=== PATIENT | female | born 1985 | race Caucasian/White ===

== ENCOUNTER 2017-07-11 07:20 | Inpatient (IN) | payer MEDICAID ==
[2017-07-11] MEDS ORDERED: Nalbuphine 20 MG/1 ML Amp IVPUSH PRN (07:30)
[2017-07-11] MEDS ORDERED: Sodium Chloride 0.9% 10 ML Syringe FLUSH PRN (07:30)
[2017-07-11] MEDS ORDERED: Ondansetron 4 MG/2 ML SDV IVPUSH PRN (07:30)
[2017-07-11] MEDS ORDERED: Oxytocin/Lactated Ringers 10 UNIT/1,000 ML BAG IV SCH ×2 (07:30)
--- NOTE | 2017-07-11 07:34 | PCM.LDHP ---
L&D History of Present Illness - General Date of Service: 07/11/17 Admit Problem/Dx: Patient Status Order with Admit Dx/Problem 07/11/17 07:31 Patient Status [ADT] Routine Admission Diagnosis/Problem Admission Diagnosis/Problem Normal Source of Information: Patient History Limitations: Reports: No Limitations - History of Present Illness Introduction:: Patient is a 32 y/o at 39 3/7 wks presents for IOL. Doing well. No new concerns or complaints. Having some slight cramping at times. - Related Data Allergies/Adverse Reactions: Allergies Allergy/AdvReac Type Severity Reaction Status Date / Time No Known Allergies Allergy Verified 06/22/16 10:25 Home Medications: Home Meds Ondansetron [Zofran ODT] 4 mg PO Q6H #10 tab.dis MDD 8mg 06/22/16 [Rx] Past Medical History [employer] History: Reports: : 2 Para: 1 LMP (Approximate): Psychiatric History: Reports: Depression - Past Surgical History HEENT Surgical History: Reports: Oral Surgery (tooth extraction) Social & Family History - Family History Family Medical History: Noncontributory - Tobacco Use Smoking Status *Q: Former Smoker Years of Tobacco use: 10 Packs/Tins Daily: 0.5 - Caffeine Use Caffeine Use: Reports: Coffee, Soda - Recreational Drug Use Recreational Drug Use: No H&P Review of Systems - Review of Systems: Review Of Systems: See Below General: Reports: No Symptoms Pulmonary: Reports: No Symptoms Cardiovascular: Reports: No Symptoms Gastrointestinal: Reports: No Symptoms Genitourinary: Reports: No Symptoms Musculoskeletal: Reports: No Symptoms Psychiatric: Reports: No Symptoms L&D Exam - Exam Exam: See Below - OB Specific Contraction Intensity: Irritability Movement: Active Heart Tones: Present Heart Tones per Min: 135 Heart Rate (FHR) Variability: Moderate (6-25 bmp) Presentation: Vertex - Ramirez Score Ramirez Score Cervix Position: Posterior Ramirez Score Consistency: Soft Ramirez Score Effacement: >80% Ramirez Score Dilation: 3-4 cm Ramirez Score 's Station: -2 Ramirez Score Total: 8 - Exam General: Alert, Oriented, Cooperative Lungs: Clear to Auscultation, Normal Respiratory Effort Cardiovascular: Regular Rate, Regular Rhythm GI/Abdominal Exam: Soft, Non-Tender Genitourinary: Normal external exam Extremities: Normal Inspection Skin: Warm, Dry, Intact - Patient Data Result Diagrams: 07/11/17 07:57 - Problem List (1) 39 weeks gestation of SNOMED Code(s): 99803837 ICD Code: Z3A.39 - 39 WEEKS GESTATION OF Status: Acute Current Visit: Yes Problem List Initiated/Reviewed/Updated: Yes Orders Last 24hrs: Active Orders 24 hr Category Date Time Status Patient Status [ADT] Routine ADT 07/11/17 07:31 Ordered Communication Order [RC] ASDIRECTED Care 07/11/17 07:31 Ordered Communication Order [RC] ASDIRECTED Care 07/11/17 07:31 Ordered Communication Order [RC] ASDIRECTED Care 07/11/17 07:31 Ordered Monitoring [RC] INTERMITTENT Care 07/11/17 07:31 Ordered Notify Provider [RC] ASDIRECTED Care 07/11/17 07:31 Ordered Notify Provider [RC] PRN Care 07/11/17 07:31 Ordered Peripheral IV Care [RC] . DIRECTED Care 07/11/17 07:31 Ordered Up ad Estefanía [RC] ASDIRECTED Care 07/11/17 07:31 Ordered Urinary Catheter Assessment [RC] ASDIRECTED Care 07/11/17 07:30 Ordered Vaginal Exam [RC] ASDIRECTED Care 07/11/17 07:31 Ordered Vital Signs [RC] ASDIRECTED Care 07/11/17 07:31 Ordered Vital Signs [RC] PER UNIT ROUTINE Care 07/11/17 07:31 Ordered Regular Diet [DIET] Diet 07/11/17 Breakfast Ordered CBC W/O DIFF,HEMOGRAM [HEME] Routine Lab 07/11/17 07:30 Ordered TYPE AND SCREEN [BBK] Routine Lab 07/11/17 07:30 Ordered Lactated Ringers [Ringers, Lactated] 1,000 ml Med 07/11/17 07:30 Ordered IV ASDIRECTED Nalbuphine [Nubain] Med 07/11/17 07:30 Ordered 10 mg IVPUSH Q2H PRN Ondansetron [Zofran] Med 07/11/17 07:30 Ordered 4 mg IVPUSH Q4H PRN Oxytocin/Lactated Ringers [Pitocin in LR 10 Units/1,000 Med 07/11/17 07:30 Ordered ML] 10 unit in 1,000 ml IV .CONTINUOUS Oxytocin/Lactated Ringers [Pitocin in LR 10 Units/1,000 Med 07/11/17 07:30 Ordered ML] 10 unit in 1,000 ml IV TITRATE Sodium Chloride 0.9% [Saline Flush] Med 07/11/17 07:30 Ordered 10 ml FLUSH ASDIRECTED PRN Electronic Heart Tones Internal [WOMSER] Per Unit Oth 07/11/17 07:31 Ordered Routine Peripheral IV Insertion Adult [OM.PC] Routine Oth 07/11/17 07:31 Ordered Resuscitation Status Routine Resus Stat 07/11/17 07:30 Ordered Assessment/Plan Comment:: 32 y/o presents at 39 3/7 wks for IOL * CBC and T&S * Pitocin for IOL with AROM when able * GBS negative, no need for antibiotics * Pain management per patient preference * Anticipate
[2017-07-11] MEDS: Lactated Ringers 1,000 ML IV SCH ×2 (08:03→14:23)
--- NOTE | 2017-07-11 11:53 | PCM.PNLD ---
Labor Progress Note - VS & Meds Active Medications: Current Medications Lactated Ringer's (Ringers, Lactated) 1,000 mls @ 40 mls/hr IV ASDIRECTED STEPHEN Last Admin: 07/11/17 08:03 Dose: 40 mls/hr Oxytocin/Lactated Ringer's (Pitocin In Lr 10 Units/1,000 Ml) 10 unit in 1,000 mls @ 12 mls/hr IV TITRATE STEPHEN; 2 MUNITS/MIN PRN Reason: Protocol Last Titration: 07/11/17 09:28 Dose: 6 munits/min, 36 mls/hr Oxytocin/Lactated Ringer's (Pitocin In Lr 10 Units/1,000 Ml) 10 unit in 1,000 mls @ 500 mls/hr IV .CONTINUOUS STEPHEN Nalbuphine HCl (Nubain) 10 mg IVPUSH Q2H PRN PRN Reason: Pain (moderate 4-6) Ondansetron HCl (Zofran) 4 mg IVPUSH Q4H PRN PRN Reason: Nausea/Vomiting Sodium Chloride (Saline Flush) 10 ml FLUSH ASDIRECTED PRN PRN Reason: Keep Vein Open - Uterine Contractions Uterine Monitoring Mode: External [place] Contraction Intensity: Mild to Moderate Uterine Resting Tone: Soft - Monitoring Monitor Mode: External Ultrasound Heart Rate (FHR) Baseline: 135 Heart Rate (FHR) Variability: Moderate (6-25 bmp) Accelerations: Present, 15x15 Decelerations: None Strip Review: Category I - Vaginal Exam Dilation (cm): 3-4 Effacement (Percent): 80 Station: -2 Cervical Position: Posterior - Labor Progress (Free Text) Labor Progress: Doing well. On 6 of pitocin. AROM performed with release of clear fluid. Continue present management
[2017-07-11] MEDS: Misoprostol 200 MCG Tab PO STA ×2 (14:20→16:01)
[2017-07-11] MEDS ORDERED: Oxytocin 10 Units/1 ML SDV ONE (15:02)
[2017-07-11] MEDS ORDERED: Lidocaine 1% 50 ML MDV ONE (15:14)
[2017-07-11] MEDS ORDERED: Misoprostol 200 MCG Tab ONE (15:16)
[2017-07-11] MEDS ORDERED: Oxytocin 10 Units/1 ML SDV IM ONE (15:21)
--- NOTE | 2017-07-11 15:34 | PCM.DEL ---
L & D Note - General Info Date of Service: 07/11/17 - Delivery Note Labor: Induced by ARM, Induced by Oxytocin Delivery Outcome: Livebirth Infant Delivery Method: Spontaneous Vaginal Delivery-Single Infant Delivery Mode: Spontaneous Presentation: Left Occiput Anterior (LAUREL) Nuchal Cord: None Anesthesia Type: None Amniotic Fluid Description: Clear Episiotomy Type: None Laceration: 2nd Degree, Perineal Suture type: Vicryl Suture size: 2-0 Placenta: Intact, Expressed Cord: 3 Vessels Estimated Blood Loss: 600 : Suctioned, Bulb Syringe, Stimulated, Warmed, [place] Used, Warmer Used Score 1 min: 8 Score 5 min: 9 Delivery Comments (Free Text/Narrative):: Patient found to be complete and began pushing. With maternal pushing effort head delivered from an LAUREL presentation. No nuchal present. With gentle downward traction the shoulders and body delivered. placed on maternal abdomen. Cord clamped and cut. Cord blood obtained. Placenta given time to separate, but at about 15 minutes had not released and exam showed to be sitting in the cervix. It was gently extracted. After this bleeding noted. IV access was lost and so she did get IM pitocin, buccal cytotec, and fundal massage. She did well with this. - Patient Data Lab Results Last 24 Hours: Laboratory Results - last 24 hr 07/11/17 07/11/17 Range/Units 07:57 07:57 WBC 8.40 (3.98-10.04) K/mm3 RBC 4.50 (3.98-5.22) M/mm3 Hgb 12.0 (11.2-15.7) gm/L Hct 35.9 (34.1-44.9) % MCV 79.8 (79.4-94.8) fl MCH 26.7 (25.6-32.2) pg MCHC 33.4 (32.2-35.5) g/dl RDW Std Deviation 43.9 (36.4-46.3) fL Plt Count 188 (182-369) K/mm3 MPV 10.4 (9.4-12.3) fl Blood Type O POSITIVE Gel Antibody Screen Negative Med Orders - Current: Current Medications Lactated Ringer's (Ringers, Lactated) 1,000 mls @ 40 mls/hr IV ASDIRECTED STEPHEN Last Admin: 07/11/17 14:23 Dose: 40 mls/hr Oxytocin/Lactated Ringer's (Pitocin In Lr 10 Units/1,000 Ml) 10 unit in 1,000 mls @ 12 mls/hr IV TITRATE STEPHEN; 2 MUNITS/MIN PRN Reason: Protocol Last Titration: 07/11/17 09:28 Dose: 6 munits/min, 36 mls/hr Oxytocin/Lactated Ringer's (Pitocin In Lr 10 Units/1,000 Ml) 10 unit in 1,000 mls @ 500 mls/hr IV .CONTINUOUS STEPHEN Misoprostol (Cytotec) 600 mcg PO NOW STA Stop: 07/11/17 15:32 Nalbuphine HCl (Nubain) 10 mg IVPUSH Q2H PRN PRN Reason: Pain (moderate 4-6) Ondansetron HCl (Zofran) 4 mg IVPUSH Q4H PRN PRN Reason: Nausea/Vomiting Oxytocin (Pitocin) 10 unit IM ONETIME ONE Stop: 07/11/17 15:22 Sodium Chloride (Saline Flush) 10 ml FLUSH ASDIRECTED PRN PRN Reason: Keep Vein Open Discontinued Medications Lidocaine HCl (Xylocaine 1%) Confirm Administered Dose 50 ml .ROUTE .STK-MED ONE Stop: 07/11/17 15:15 Misoprostol (Cytotec) Confirm Administered Dose 600 mcg .ROUTE .STK-MED ONE Stop: 07/11/17 15:17 Oxytocin (Pitocin) Confirm Administered Dose 10 unit .ROUTE .STK-MED ONE Stop: 07/11/17 15:03 - Problem List & Annotations (1) 39 weeks gestation of SNOMED Code(s): 40655213 Code(s): Z3A.39 - 39 WEEKS GESTATION OF Status: Acute Current Visit: Yes (2) Vaginal delivery SNOMED Code(s): 501828773 Code(s): O80 - ENCOUNTER FOR FULL-TERM UNCOMPLICATED DELIVERY Status: Acute Current Visit: Yes (3) hemorrhage SNOMED Code(s): 98792856 Code(s): O72.1 - OTHER IMMEDIATE HEMORRHAGE Status: Acute Current Visit: Yes Qualifiers: hemorrhage type: other immediate Qualified Code(s): O72.1 - Other immediate hemorrhage - Problem List Review Problem List Initiated/Reviewed/Updated: Yes - My Orders Last 24 Hours: My Active Orders 07/11/17 07:30 Urinary Catheter Assessment [RC] ASDIRECTED Lactated Ringers [Ringers, Lactated] 1,000 ml IV ASDIRECTED Nalbuphine [Nubain] 10 mg IVPUSH Q2H PRN Ondansetron [Zofran] 4 mg IVPUSH Q4H PRN Oxytocin/Lactated Ringers [Pitocin in LR 10 Units/1,000 ML] 10 unit in 1,000 ml IV .CONTINUOUS Oxytocin/Lactated Ringers [Pitocin in LR 10 Units/1,000 ML] 10 unit in 1,000 ml IV TITRATE Sodium Chloride 0.9% [Saline Flush] 10 ml FLUSH ASDIRECTED PRN Resuscitation Status Routine 07/11/17 07:31 Patient Status [ADT] Routine Communication Order [RC] ASDIRECTED Communication Order [RC] ASDIRECTED Communication Order [RC] ASDIRECTED Monitoring [RC] INTERMITTENT Notify Provider [RC] ASDIRECTED Notify Provider [RC] PRN Peripheral IV Care [RC] . DIRECTED Up ad Estefanía [RC] ASDIRECTED Vaginal Exam [RC] ASDIRECTED Vital Signs [RC] ASDIRECTED Vital Signs [RC] PER UNIT ROUTINE Electronic Heart Tones Internal [WOMSER] Per Unit Routine Peripheral IV Insertion Adult [OM.PC] Routine 07/11/17 07:57 PATIENT RETYPE [BBK] Routine TYPE AND SCREEN [BBK] Routine 07/11/17 15:21 Oxytocin [Pitocin] 10 unit IM ONETIME ONE 07/11/17 15:31 Misoprostol [Cytotec] 600 mcg PO NOW STA 07/11/17 15:32 Patient Status Manage Transfer [TRANSFER] Routine 07/11/17 Breakfast Regular Diet [DIET] - Assessment Assessment:: 32 y/o G2 now P2002 PPD#0 from at 39 3/7 wks - Plan Plan:: * Routine cares * Encourage breast feeding * Discharge home in 1-2 days
[2017-07-11] MEDS ORDERED: Lanolin 100% Cream 7 GM Tube TOP PRN (15:53)
[2017-07-11] MEDS ORDERED: Acetaminophen 325 MG Tab PO PRN (15:53)
[2017-07-11] MEDS ORDERED: Witch Hazel Medicated Pads 100/Jar TOP PRN (15:53)
[2017-07-11] MEDS ORDERED: Docusate Sodium 100 MG Cap PO PRN (15:53)
[2017-07-11] MEDS ORDERED: Benzocaine/Menthol 20%-0.5% Spray 56 GM Canister TOP PRN (15:53)
[2017-07-11] MEDS ORDERED: Lidocaine 1% 20 ML MDV INJECT ONE (15:55)
[2017-07-11] MEDS: Ibuprofen 600 MG Tab PO PRN (16:42)
[2017-07-12] MEDS: Ibuprofen 600 MG Tab PO PRN (06:42)
--- NOTE | 2017-07-12 07:29 | PCM.PNPP ---
- General Info Date of Service: 07/12/17 Functional Status: Reports: Pain Controlled, Tolerating Diet, Ambulating, Urinating - Review of Systems General: Reports: No Symptoms Pulmonary: Reports: No Symptoms Cardiovascular: Reports: No Symptoms Gastrointestinal: Reports: No Symptoms Genitourinary: Reports: No Symptoms Musculoskeletal: Reports: No Symptoms - Patient Data Vital Signs - Most Recent: Last Vital Signs Temp 36.7 C 07/12/17 04:38 Pulse 87 07/12/17 04:38 Resp 16 07/12/17 04:38 BP 125/84 07/12/17 04:38 Pulse Ox 98 07/12/17 04:38 Weight - Most Recent: 122.924 kg I&O - Last 24 Hours: Intake & Output 07/11/17 07/12/17 07/12/17 22:59 06:59 14:59 Intake Total 1000 Balance 1000 Lab Results - Last 24 Hours: Laboratory Results - last 24 hr 07/11/17 07/11/17 Range/Units 07:57 07:57 WBC 8.40 (3.98-10.04) K/mm3 RBC 4.50 (3.98-5.22) M/mm3 Hgb 12.0 (11.2-15.7) gm/L Hct 35.9 (34.1-44.9) % MCV 79.8 (79.4-94.8) fl MCH 26.7 (25.6-32.2) pg MCHC 33.4 (32.2-35.5) g/dl RDW Std Deviation 43.9 (36.4-46.3) fL Plt Count 188 (182-369) K/mm3 MPV 10.4 (9.4-12.3) fl Blood Type O POSITIVE Gel Antibody Screen Negative Med Orders - Current: Current Medications Acetaminophen (Tylenol) 650 mg PO Q4H PRN PRN Reason: mild pain or fever Benzocaine/Menthol (Dermoplast Pain Relief [place] [employer]) 0 gm TOP ASDIRECTED PRN PRN Reason: Perineal Comfort Measure Docusate Sodium (Colace) 100 mg PO BID PRN PRN Reason: Constipation Emollient Ointment (Lansinoh Hpa) 0 gm TOP ASDIRECTED PRN PRN Reason: Sore Nipples Ibuprofen (Motrin) 600 mg PO Q6H PRN PRN Reason: Mild pain or fever Last Admin: 07/12/17 06:42 Dose: 600 mg Witch Aditi (Tucks) 1 pad TOP ASDIRECTED PRN PRN Reason: Hemorrhoid pain Discontinued Medications Lactated Ringer's (Ringers, Lactated) 1,000 mls @ 40 mls/hr IV ASDIRECTED STEPHEN Last Admin: 07/11/17 14:23 Dose: 40 mls/hr Oxytocin/Lactated Ringer's (Pitocin In Lr 10 Units/1,000 Ml) 10 unit in 1,000 mls @ 12 mls/hr IV TITRATE STEPHEN; 2 MUNITS/MIN PRN Reason: Protocol Last Titration: 07/11/17 09:28 Dose: 6 munits/min, 36 mls/hr Oxytocin/Lactated Ringer's (Pitocin In Lr 10 Units/1,000 Ml) 10 unit in 1,000 mls @ 500 mls/hr IV .CONTINUOUS STEPHEN Lidocaine HCl (Xylocaine 1%) Confirm Administered Dose 50 ml .ROUTE .STK-MED ONE Stop: 07/11/17 15:15 Last Admin: 07/11/17 16:01 Dose: Not Given Lidocaine HCl (Xylocaine 1%) 50 ml INJECT ONETIME ONE Stop: 07/11/17 15:56 Last Admin: 07/11/17 15:15 Dose: 50 ml Misoprostol (Cytotec) Confirm Administered Dose 600 mcg .ROUTE .STK-MED ONE Stop: 07/11/17 15:17 Last Admin: 07/11/17 16:01 Dose: Not Given Misoprostol (Cytotec) 600 mcg PO NOW STA Stop: 07/11/17 15:32 Last Admin: 07/11/17 16:01 Dose: Not Given Nalbuphine HCl (Nubain) 10 mg IVPUSH Q2H PRN PRN Reason: Pain (moderate 4-6) Ondansetron HCl (Zofran) 4 mg IVPUSH Q4H PRN PRN Reason: Nausea/Vomiting Oxytocin (Pitocin) Confirm Administered Dose 10 unit .ROUTE .STK-MED ONE Stop: 07/11/17 15:03 Last Admin: 07/11/17 16:01 Dose: Not Given Oxytocin (Pitocin) 10 unit IM ONETIME ONE Stop: 07/11/17 15:22 Last Admin: 07/11/17 16:00 Dose: 10 unit Sodium Chloride (Saline Flush) 10 ml FLUSH ASDIRECTED PRN PRN Reason: Keep Vein Open - Infant Interaction Infant Disposition, : [place] in Room with Family Interaction: Holding Infant Feeding: Breastfed ; Nursed Well Support Person: - Recovery Exam Fundal Tone: Firm Fundal Level: At Umbilicus Fundal Placement: Midline Lochia Amount: Moderate Lochia Color: Rubra/Red Bladder Status: Voiding Urinary Elimination: Voided - Exam General: Alert, Oriented, Cooperative GI/Abdominal Exam: Soft, Non-Tender Extremities: Normal Inspection Skin: Warm, Dry, Intact - Problem List & Annotations (1) 39 weeks gestation of SNOMED Code(s): 37114041 Code(s): Z3A.39 - 39 WEEKS GESTATION OF Status: Acute Current Visit: Yes (2) Vaginal delivery SNOMED Code(s): 727342936 Code(s): O80 - ENCOUNTER FOR FULL-TERM UNCOMPLICATED DELIVERY Status: Acute Current Visit: Yes (3) hemorrhage SNOMED Code(s): 03698946 Code(s): O72.1 - OTHER IMMEDIATE HEMORRHAGE Status: Acute Current Visit: Yes Qualifiers: hemorrhage type: other immediate Qualified Code(s): O72.1 - Other immediate hemorrhage - Problem List Review Problem List Initiated/Reviewed/Updated: Yes - My Orders Last 24 Hours: My Active Orders 07/11/17 07:30 Urinary Catheter Assessment [RC] ASDIRECTED Resuscitation Status Routine 07/11/17 07:31 Communication Order [RC] ASDIRECTED Communication Order [RC] ASDIRECTED Communication Order [RC] ASDIRECTED Monitoring [RC] INTERMITTENT Notify Provider [RC] ASDIRECTED Notify Provider [RC] PRN Peripheral IV Care [RC] . DIRECTED Up ad Estefanía [RC] ASDIRECTED Vaginal Exam [RC] ASDIRECTED Vital Signs [RC] ASDIRECTED Vital Signs [RC] PER UNIT ROUTINE 07/11/17 15:53 Activity as Tolerated [RC] PER UNIT ROUTINE Vital Signs [RC] 04,12,20 Acetaminophen [Tylenol] 650 mg PO Q4H PRN Benzocaine/Menthol [Dermoplast Pain Relief [place] [employer]] See Dose Instructions TOP ASDIRECTED PRN Docusate Sodium [Colace] 100 mg PO BID PRN Ibuprofen [Motrin] 600 mg PO Q6H PRN Lanolin [Lansinoh HPA] See Dose Instructions TOP ASDIRECTED PRN Witch Aditi [Tucks] 1 pad TOP ASDIRECTED PRN Assess Lochia [WOMSER] Per Unit Routine Assess Uterine Involution [WOMSER] Per Unit Routine Breast Pump [WOMSER] Per Unit Routine Heat Therapy [OM.PC] PRN Ice Therapy [OM.PC] Per Unit Routine Perineal Care [OM.PC] Per Unit Routine Peripheral IV Discontinue [OM.PC] Routine Sitz Bath [OM.PC] Per Unit Routine 07/11/17 Dinner Regular Diet [DIET] 07/12/17 15:53 Heat Therapy [OM.PC] PRN - Assessment Assessment:: 32 y/o G2 now P2002 PPD#1 from at 39 3/7 wks - Plan Plan:: * Routine cares * Encourage breast feeding * Discharge home today per patient preference
--- NOTE | 2017-07-12 07:30 | PCM.DCSUM1 ---
Discharge Summary - Discharge Data Discharge Date: 07/12/17 Discharge Disposition: Home, Self-Care 01 Condition: Good - Discharge Diagnosis/Problem(s) (1) 39 weeks gestation of SNOMED Code(s): 41206327 ICD Code: Z3A.39 - 39 WEEKS GESTATION OF Status: Acute Current Visit: Yes (2) Vaginal delivery SNOMED Code(s): 067458150 ICD Code: O80 - ENCOUNTER FOR FULL-TERM UNCOMPLICATED DELIVERY Status: Acute Current Visit: Yes (3) hemorrhage SNOMED Code(s): 70296120 ICD Code: O72.1 - OTHER IMMEDIATE HEMORRHAGE Status: Acute Current Visit: Yes Qualifiers: hemorrhage type: other immediate Qualified Code(s): O72.1 - Other immediate hemorrhage - Patient Summary/Data Complications: None Consults: None Recommended Follow-up Testing/Procedures: Follow up in 3-6 weeks for check Hospital Course: Patient is a 32-year-old who presented at 39-3/7 weeks gestation for induction of labor. This was done with Pitocin and AROM. She progressed well to complete dilation and underwent an uncomplicated vaginal delivery. Please see delivery note for full details. she did well and was discharged home on day #1 per her preference - Patient Instructions Diet: Regular Diet as Tolerated Activity: As Tolerated Activity, Other: Pelvic Rest for 6 weeks Driving: May Drive Today Showering/Bathing: May Shower Showering/Bathing, Other: May bathe Notify Provider of: Fever, Increased Pain, Swelling and Redness, Drainage, Nausea and/or Vomiting - Discharge Plan Home Medications: Home Meds Docusate Sodium [Colace] 100 mg PO BID PRN cap 07/11/17 [Rx] Ibuprofen [IJD: Ibuprofen] 600 mg PO Q6H PRN tablet 07/11/17 [Rx] Referrals: Genesis Armas MD [Primary Care Provider] - (3-6 weeks for check ) - Discharge Summary/Plan Comment DC Time >30 min.: No - Patient Data Vitals - Most Recent: Last Vital Signs Temp 36.7 C 07/12/17 04:38 Pulse 87 07/12/17 04:38 Resp 16 07/12/17 04:38 BP 125/84 07/12/17 04:38 Pulse Ox 98 07/12/17 04:38 Weight - Most Recent: 122.924 kg I&O - Last 24 hours: Intake & Output 07/11/17 07/12/17 07/12/17 22:59 06:59 14:59 Intake Total 1000 Balance 1000 Lab Results - Last 24 hrs: Laboratory Results - last 24 hr 07/11/17 07/11/17 Range/Units 07:57 07:57 WBC 8.40 (3.98-10.04) K/mm3 RBC 4.50 (3.98-5.22) M/mm3 Hgb 12.0 (11.2-15.7) gm/L Hct 35.9 (34.1-44.9) % MCV 79.8 (79.4-94.8) fl MCH 26.7 (25.6-32.2) pg MCHC 33.4 (32.2-35.5) g/dl RDW Std Deviation 43.9 (36.4-46.3) fL Plt Count 188 (182-369) K/mm3 MPV 10.4 (9.4-12.3) fl Blood Type O POSITIVE Gel Antibody Screen Negative Med Orders - Current: Current Medications Acetaminophen (Tylenol) 650 mg PO Q4H PRN PRN Reason: mild pain or fever Benzocaine/Menthol (Dermoplast Pain Relief [place]) 0 gm TOP ASDIRECTED PRN PRN Reason: Perineal Comfort Measure Docusate Sodium (Colace) 100 mg PO BID PRN PRN Reason: Constipation Emollient Ointment (Lansinoh Hpa) 0 gm TOP ASDIRECTED PRN PRN Reason: Sore Nipples Ibuprofen (Motrin) 600 mg PO Q6H PRN PRN Reason: Mild pain or fever Last Admin: 07/12/17 06:42 Dose: 600 mg Witch Aditi (Tucks) 1 pad TOP ASDIRECTED PRN PRN Reason: Hemorrhoid pain Discontinued Medications Lactated Ringer's (Ringers, Lactated) 1,000 mls @ 40 mls/hr IV ASDIRECTED STEPHEN Last Admin: 07/11/17 14:23 Dose: 40 mls/hr Oxytocin/Lactated Ringer's (Pitocin In Lr 10 Units/1,000 Ml) 10 unit in 1,000 mls @ 12 mls/hr IV TITRATE STEPHEN; 2 MUNITS/MIN PRN Reason: Protocol Last Titration: 07/11/17 09:28 Dose: 6 munits/min, 36 mls/hr Oxytocin/Lactated Ringer's (Pitocin In Lr 10 Units/1,000 Ml) 10 unit in 1,000 mls @ 500 mls/hr IV .CONTINUOUS STEPHEN Lidocaine HCl (Xylocaine 1%) Confirm Administered Dose 50 ml .ROUTE .STK-MED ONE Stop: 07/11/17 15:15 Last Admin: 07/11/17 16:01 Dose: Not Given Lidocaine HCl (Xylocaine 1%) 50 ml INJECT ONETIME ONE Stop: 07/11/17 15:56 Last Admin: 07/11/17 15:15 Dose: 50 ml Misoprostol (Cytotec) Confirm Administered Dose 600 mcg .ROUTE .STK-MED ONE Stop: 07/11/17 15:17 Last Admin: 07/11/17 16:01 Dose: Not Given Misoprostol (Cytotec) 600 mcg PO NOW STA Stop: 07/11/17 15:32 Last Admin: 07/11/17 16:01 Dose: Not Given Nalbuphine HCl (Nubain) 10 mg IVPUSH Q2H PRN PRN Reason: Pain (moderate 4-6) Ondansetron HCl (Zofran) 4 mg IVPUSH Q4H PRN PRN Reason: Nausea/Vomiting Oxytocin (Pitocin) Confirm Administered Dose 10 unit .ROUTE .STK-MED ONE Stop: 07/11/17 15:03 Last Admin: 07/11/17 16:01 Dose: Not Given Oxytocin (Pitocin) 10 unit IM ONETIME ONE Stop: 07/11/17 15:22 Last Admin: 07/11/17 16:00 Dose: 10 unit Sodium Chloride (Saline Flush) 10 ml FLUSH ASDIRECTED PRN PRN Reason: Keep Vein Open *Q Meaningful Use (DIS) - VTE *Q VTE Criteria *Q: - Stroke *Q Stroke Criteria *Q: - AMI *Q AMI Criteria *Q:
[2017-07-12 15:42] VITALS: BP 121/67
== END 2017-07-12 16:10 | disposition home or self-care (01) | DRG 774 ==
LOC: JD.OB 07:20 → OBSVTOIN 14:57 → JD.OB 14:57
PROVIDERS: ADMIT Obstetrics & Gynecology; ATTEND Obstetrics & Gynecology
PROC: 10E0XZZ Delivery of Products of Conception, External Approach (ICD-10-PCS; principal; 2017-07-11)
PROC: 0KQM0ZZ Repair Perineum Muscle, Open Approach (ICD-10-PCS; 2017-07-11)
PROC: 10907ZC Drainage of Amniotic Fluid, Therapeutic from Products of Conception, Via Natural or Artificial Opening (ICD-10-PCS; 2017-07-11)
DX: O70.1 Second degree perineal laceration during delivery (principal); O72.1 Other immediate postpartum hemorrhage; Z37.0 Single live birth; Z3A.39 39 weeks gestation of pregnancy; Z87.891 Personal history of nicotine dependence
CPT/HCPCS: 36415; 59300; 59409; 85027; 86850; 86900; 86901; A9270-GY; J2590; J7120